=== PATIENT | female | born 1935 | race Caucasian/White ===

== ENCOUNTER → 2018-01-14 13:16 | Outpatient (CLI) | payer MEDICARE, OTHER, SELFPAY ==
--- NOTE | 2018-01-14 | OV.WND_ITS ---
Progress Note Details Patient Name: Lizeth Oconnell Patient Number: [id number] PatientPatientDate: 01/14/2018 Clinician: Brenda Whiteside Physician / Paving Contractor: Ryan Genao SUBJECTIVE Chief Complaint This information was obtained from the patient Non-healing wound to left lower leg Allergies NKDA HPI This information was obtained from the patient 01/14/18. Seen by Dr. Genao. The patient's new to our clinic and presents with a non-healing left lower leg trauma wound that occurred about 2 weeks ago when she fell over a step at her house. She reports pain, drainage, and periwound redness and was placed on antibiotics initially for 7 days and has now been off of them for one week. She does not report fevers or feeling unwell otherwise and does not have a history of diabetes or PAD. Family History This information was obtained from the patient Hypertension - Sibling, Mental Illness - Sibling, Stroke - Mother, Father Social History This information was obtained from the patient Former smoker - 1974, Alcohol Use - wine/ beer 1-2/ day, Caffeine Use - two cups , Children - 4, Lives in, Occupation - Owns [employer] Past Medical History This information was obtained from the patient Patient has a medical history of: Rupture of Right Rotator cuff Hypertension Diffuse cystic mastopathy of Breast Surgical History This information was obtained from the patient Patient has a surgical history of: Carpal Tunnel Release Bilat Cataract Removal Tubal Ligation Bilateral Patellar Repair R shoulder replacement Bunionectomy Complaints and Symptoms This information was obtained from the patient Patient complains of: General Notes: I have reviewed and concur with the Review of Systems and Past Family Social History documents completed by the clinician, I have reviewed and concur with the Wound Assessment document completed by the clinician Cardiovascular (Central/Peripheral): Lower extremity (leg) swelling Integumentary (Hair/Skin/Nails): Hemosiderin Staining, Open Sore Prior Wound History: Bleeding, Drainage, Erythema, Pain Patient denies complaints or symptoms related to: Cardiovascular (Central): Irregular heart beat Cardiovascular (Central/Peripheral): Intermittent Claudication, Lower extremity (leg) resting pain Constitutional Symptoms (General Health): Chills, Fever Ear/Nose/Mouth/Throat: Hearing Loss / Aid Hematologic/Lymphatic: Bleeding / Clotting Disorders, Bleeding Tendency Musculoskeletal: Assistive Devices, Muscle Weakness Neurological: Loss of Protective Sensation Psychiatric: Memory Loss Respiratory: Oxygen Use, Shortness of Breath General Notes: Up to date Medications lisinopril 10 mg tablet oral tablet oral once daily Aspirin Low Dose 81 mg tablet,delayed release oral tablet,delayed release (DR/EC ) oral once daily doxycycline hyclate 100 mg capsule oral capsule oral twice daily for 7 days for cellulitis OBJECTIVE Constitutional BP normal; Low grade fever; Alert and in no distress. Well developed. Alert. Clean appearing.. Height/Length: 61 in (154.94 cm), Weight: 121.7 lbs (55.32 kgs), BMI: 23, Temperature: 99.3 ?F (37.39 ?C), Pulse: 77 bpm, Respiratory Rate: 16 breaths/min, Blood Pressure: 122/76 mmHg, Pulse Oximetry: 94 %. Ears, Nose, Mouth, and Throat: No clinically significant hearing loss on informal examination. Respiratory: No respiratory distress. Even respirations and without use of accessory muscles.. Cardiovascular: Pedal pulses 2+ on affected limb. 1+ left lower extremity edema. Integumentary (Hair, Skin) Mild periwound erythema with warmth. Refer to appropriate clinician wound documentation for this visit; left lower leg wound extends to subcut with base partially covered with pink granulation, remainder fibrin and slough; base appears dry. Wound #1 Left Leg - lower is an acute Full Thickness Trauma Wound and has received a status of Not Healed. Initial wound encounter measurements are 3.3cm length x 4.5cm width x 0.5cm depth, with an area of 14.85 sq cm and a volume of 7.425 cubic cm. No tunneling has been noted. No sinus tract has been noted. No undermining has been noted. There is a moderate amount of sero-sanguineous drainage noted which has no odor. The patient reports a wound pain of level 4/10. The wound margin is attached. Wound bed has Yes epithelialization, No eschar, Yes slough, Yes bright red, pink, firm granulation. The periwound skin texture is normal. The periwound skin moisture is normal. The periwound skin exhibited: Erythema, Hemosiderosis. The temperature of the periwound skin is WNL. Periwound skin presents with s/s of infection. Confirmation Description and Treatment Plan is: Signs and Symptoms Present. Local Pulse is Doppler. Neurological: Cranial nerves grossly intact with symmetric function normal by informal observation.. ASSESSMENT Active Problems ICD-10 (Encounter Diagnosis) S81.802D - Unspecified open wound, left lower leg, subsequent encounter (Encounter Diagnosis) L03.116 - Cellulitis of left lower limb PROCEDURES Wound #1 Wound #1 (Trauma Wound) is located on the left leg - lower. A skin/subcutaneous tissue level surgical debridement with a total area debrided of 14.85 sq cm was performed by Ryan Genao MD. Subcutaneous was removed along with devitalized tissue: slough. The following instrument(s) were used: curette. Pain control was achieved using 4% Lido. A time out was conducted prior to the start of the procedure. A minimal amount of bleeding was controlled with n/a. The procedure was tolerated well with a pain level of 0 throughout and a pain level of 0 following the procedure. Post Debridement Measurements: 3.3cm length x 4.5cm width x 0.6cm depth; with an area of 14.85 sq cm and a volume of 8.91 cubic cm; PLAN Wound Orders: Wound #1 Left Leg - lower Anesthetic Topical Xylocaine to wound bed. - In clinic only Cleanser Cleanse Wound: - Normal Saline in Clinic. May use distilled water at home. May Shower. - Please avoid getting tap water in wound or on dressing. Topical Treatments Antibiotic/Antimicrobial Ointment/Cream. - Hydrogel Dressings Primary dressing: - Bordered Foam Change Dressing: - On sunday Additional Orders: Follow-Up Appointments Return Appointment: - - Sunday Other information: If you develop fever, chills, increased pain, drainage, redness or swelling please call our office. If after hours, respond to the ER. Should you experience any significant changes in your wound(s) or have any questions regarding your home care instructions please contact the wound center @ [phone]. If after hours, contact your primary care physician or go to the hospital emergency room. Scribing Attestation I attest, as the nurse, that I scribed these orders for the physician. Laboratory: Bacteria identified in Wound by Culture General Notes: Please warp picker antibiotics and take as prescribed. We will call with any positive wound cultures requiring a change in antibiotics I've reviewed the clinician's documentation and agree with the evaluation and plan as written. In addition the patient's wound demonstrates evidence of non-viable devitalized tissue which will continue to benefit from sharp debridement to help promote granulation and expedite healing. Also, I've taken a wound culture and started treating cellulitis of the left lower leg empirically with doxycycline. Electronic Signature(s) Signed By: Date: Ryan Genao MD 01/15/2018 10:10:58 Ryan Genao MD 01/15/2018 10:10:58 Entered By: Ryan Genao on 01/15/2018 09:20:02
== END ==
PROVIDERS: Visit Provider Internal Medicine
DX: S81.802A Unspecified open wound, left lower leg, initial encounter (principal); L03.116 Cellulitis of left lower limb
CPT/HCPCS: 11042; 87070; 87075; 87077; 87107; 87205; 99213

== ENCOUNTER → 2018-01-18 08:43 | Outpatient (CLI) | payer MEDICARE, OTHER, SELFPAY ==
--- NOTE | 2018-01-18 | OV.WND_ITS ---
Progress Note Details Patient Name: Lizeth Oconnell Patient Number: [id number] PatientPatientDate: 01/18/2018 Clinician: Suzy Desai Clinician Cosigner: Bernadette Bhat Physician / Telegraph Inspector: Ryan Genao SUBJECTIVE Chief Complaint This information was obtained from the patient Non-healing wound to left lower leg Allergies NKDA HPI This information was obtained from the patient 01/18/18. Seen by Dr. Genao. The patient was started on doxycycline at her last visit for cellulitis associate with the left lower leg non-healing trauma wound and feels the leg redness and swelling have decreased. She still reports pain however and her wound culture grew Sarai parapsilosis. Of note, she hit the leg off of her stairs at home about 2 weeks ago. She does not report fevers, adverse side effects of the doxycycline, or feeling unwell otherwise. 01/14/18. Seen by Dr. Genao. The patient's new to our clinic and presents with a non-healing left lower leg trauma wound that occurred about 2 weeks ago when she fell over a step at her house. She reports pain, drainage, and periwound redness and was placed on antibiotics initially for 7 days and has now been off of them for one week. She does not report fevers or feeling unwell otherwise and does not have a history of diabetes or PAD. Past Medical History This information was obtained from the patient Patient has a medical history of: Rupture of Right Rotator cuff Hypertension Diffuse cystic mastopathy of Breast Complaints and Symptoms This information was obtained from the patient Patient complains of: General Notes: I have reviewed and concur with the Review of Systems and Past Family Social History documents completed by the clinician, I have reviewed and concur with the Wound Assessment document completed by the clinician Cardiovascular (Central/Peripheral): Lower extremity (leg) swelling Integumentary (Hair/Skin/Nails): Hemosiderin Staining, Open Sore Prior Wound History: Bleeding, Drainage, Erythema, Pain Patient denies complaints or symptoms related to: Cardiovascular (Central): Irregular heart beat Cardiovascular (Central/Peripheral): Intermittent Claudication, Lower extremity (leg) resting pain Constitutional Symptoms (General Health): Chills, Fever Ear/Nose/Mouth/Throat: Hearing Loss / Aid Hematologic/Lymphatic: Bleeding / Clotting Disorders, Bleeding Tendency Musculoskeletal: Assistive Devices, Muscle Weakness Neurological: Loss of Protective Sensation Psychiatric: Memory Loss Respiratory: Oxygen Use, Shortness of Breath OBJECTIVE Constitutional Vital signs reviewed and noted. Well developed. Alert. Clean appearing.. Height/ Length: 61 in (154.94 cm), Weight: 120.6 lbs (54.82 kgs), BMI: 22.8, Temperature: 98.7 ?F ( 37.06 ?C), Pulse: 93 bpm, Respiratory Rate: 18 breaths/min, Blood Pressure: 123/84 mmHg, Pulse Oximetry: 100 %. Ears, Nose, Mouth, and Throat: No clinically significant hearing loss on informal examination. Respiratory: No respiratory distress. Even respirations and without use of accessory muscles.. Cardiovascular: Pedal pulses 2+ on affected limb. Affected extremity exhibits no peripheral edema or cyanosis, is warm, and is well perfused. Capillary refill is less than 2 seconds. Integumentary (Hair, Skin) Mild periwound erythema with warmth; improved from last visit. Refer to appropriate clinician wound documentation for this visit; left lower leg wound extends to subcut with base partially covered with pink granulation, remainder fibrin and slough. Wound #1 Left Leg - lower is an acute Full Thickness Trauma Wound and has received a status of Not Healed. Subsequent wound encounter measurements are 3.4cm length x 3cm width x 0.3cm depth, with an area of 10.2 sq cm and a volume of 3.06 cubic cm. No tunneling has been noted. No sinus tract has been noted. No undermining has been noted. There is a large amount of sero-sanguineous drainage noted which has no odor. The patient reports a wound pain of level 4/10. The wound margin is attached. Wound bed has Yes epithelialization, No eschar, Yes slough, Yes bright red, pink, firm granulation. The periwound skin texture is normal. The periwound skin moisture is normal. The periwound skin exhibited: Erythema, Hemosiderosis. The temperature of the periwound skin is WNL. Periwound skin presents with s/s of infection. Confirmation Description and Treatment Plan is: Signs and Symptoms Present. Local Pulse is Doppler. Neurological: Cranial nerves grossly intact with symmetric function normal by informal observation.. ASSESSMENT Active Problems ICD-10 (Encounter Diagnosis) S81.802D - Unspecified open wound, left lower leg, subsequent encounter (Encounter Diagnosis) L03.116 - Cellulitis of left lower limb (Encounter Diagnosis) L08.9 - Local infection of the skin and subcutaneous tissue, unspecified PROCEDURES Wound #1 Wound #1 (Trauma Wound) is located on the left leg - lower. A skin/subcutaneous tissue level surgical debridement with a total area debrided of 10.2 sq cm was performed by Ryan Genao MD. Subcutaneous was removed along with devitalized tissue: exudate and slough. The following instrument(s) were used: curette. Pain control was achieved using 4% Lido. A time out was conducted prior to the start of the procedure. A minimal amount of bleeding was controlled with pressure. The procedure was tolerated well with a pain level of 1 throughout and a pain level of 2 following the procedure. Post Debridement Measurements: 3.4cm length x 3cm width x 0.4cm depth; with an area of 10.2 sq cm and a volume of 4.08 cubic cm; PLAN Wound Orders: Wound #1 Left Leg - lower Anesthetic Topical Xylocaine to wound bed. - In clinic only Cleanser Cleanse Wound: - Normal Saline in Clinic. May use distilled water at home. May Shower. - Please avoid getting tap water in wound or on dressing. Topical Treatments Antibiotic/Antimicrobial Ointment/Cream. - Triple antibiotic to wound base with each dressing change. Dressings Primary dressing: - Bordered Foam Change Dressing: - Every day. Additional Orders: Follow-Up Appointments Return Appointment: - - January 29 when you return from your trip Other information: If you develop fever, chills, increased pain, drainage, redness or swelling please call our office. If after hours, respond to the ER. Should you experience any significant changes in your wound(s) or have any questions regarding your home care instructions please contact the wound center @ [phone]. If after hours, contact your primary care physician or go to the hospital emergency room. Scribing Attestation I attest, as the nurse, that I scribed these orders for the physician. I've reviewed the clinician's documentation and agree with the evaluation and plan as written. In addition, the patient's ulcer demonstrates evidence of non-viable devitalized tissue which will continue to benefit from sharp debridement to help promote granulation and expedite healing. Also, due to the persistent pain associated with the left leg wound I've started her on a short course of fluconazole to treat the Sarai positive ulcer. She'll also complete her course of doxycycline as prescribed. Electronic Signature(s) Signed By: Date: Ryan Genao MD 01/20/2018 14:27:05 Entered By: Ryan Genao on 01/18/2018 12:47:10
== END ==
PROVIDERS: Visit Provider Internal Medicine
DX: S81.802A Unspecified open wound, left lower leg, initial encounter (principal); L03.116 Cellulitis of left lower limb
CPT/HCPCS: 11042

== ENCOUNTER → 2018-01-28 13:13 | Outpatient (CLI) | payer MEDICARE, OTHER, SELFPAY ==
--- NOTE | 2018-01-28 | OV.WND_ITS ---
Progress Note Details Patient Name: Lizeth Oconnell Patient Number: [id number] PatientPatientDate: 01/28/2018 Clinician: Brenda Whiteside Physician / Institutional Commodity Analyst: Jose Koehler SUBJECTIVE Chief Complaint This information was obtained from the patient Non-healing wound to left lower leg Allergies NKDA HPI This information was obtained from the patient 01/28/18. Seen by Carlitos Koehler PA-C. The patient reports no increase in drainage from her left lower leg ulcer since her last evaluation. She has questions today about when and under what circumstances she can return to active swimming. 01/18/18. Seen by Dr. Genao. The patient was started on doxycycline at her last visit for cellulitis associate with the left lower leg non-healing trauma wound and feels the leg redness and swelling have decreased. She still reports pain however and her wound culture grew Sarai parapsilosis. Of note, she hit the leg off of her stairs at home about 2 weeks ago. She does not report fevers, adverse side effects of the doxycycline, or feeling unwell otherwise. 01/14/18. Seen by Dr. Genao. The patient's new to our clinic and presents with a non-healing left lower leg trauma wound that occurred about 2 weeks ago when she fell over a step at her house. She reports pain, drainage, and periwound redness and was placed on antibiotics initially for 7 days and has now been off of them for one week. She does not report fevers or feeling unwell otherwise and does not have a history of diabetes or PAD. Family History This information was obtained from the patient Hypertension - Sibling, Mental Illness - Sibling, Stroke - Mother, Father Social History This information was obtained from the patient Former smoker - 1974, Alcohol Use - wine/ beer 1-2/ day, Caffeine Use - two cups , Children - 4, Lives in, Occupation - Owns [employer] Past Medical History This information was obtained from the patient Patient has a medical history of: Rupture of Right Rotator cuff Hypertension Diffuse cystic mastopathy of Breast Complaints and Symptoms This information was obtained from the patient Patient complains of: General Notes: I have reviewed and concur with the Review of Systems and Past Family Social History documents completed by the clinician, I have reviewed and concur with the Wound Assessment document completed by the clinician Cardiovascular (Central/Peripheral): Lower extremity (leg) swelling Integumentary (Hair/Skin/Nails): Hemosiderin Staining, Open Sore Prior Wound History: Bleeding, Drainage, Erythema, Pain Patient denies complaints or symptoms related to: Cardiovascular (Central): Irregular heart beat Cardiovascular (Central/Peripheral): Intermittent Claudication, Lower extremity (leg) resting pain Constitutional Symptoms (General Health): Chills, Fever Ear/Nose/Mouth/Throat: Hearing Loss / Aid Hematologic/Lymphatic: Bleeding / Clotting Disorders, Bleeding Tendency Musculoskeletal: Assistive Devices, Muscle Weakness Neurological: Loss of Protective Sensation Psychiatric: Memory Loss Respiratory: Oxygen Use, Shortness of Breath OBJECTIVE Constitutional Vital signs reviewed and noted. Well developed, lucid, and in no acute distress. . Height/Length: 61 in (154.94 cm), Weight: 122.8 lbs (55.82 kgs), BMI: 23.2, Temperature: 98.2 ?F (36.78 ?C), Pulse: 68 bpm, Respiratory Rate: 18 breaths/min, Blood Pressure: 129/87 mmHg, Pulse Oximetry: 97 %. Ears, Nose, Mouth, and Throat: Grossly intact. Respiratory: No respiratory distress. Even respirations and without use of accessory muscles.. Cardiovascular: 2+ bilateral lower leg edema with hemosiderin staining. Integumentary (Hair, Skin) Refer to appropriate clinician wound documentation for this visit; ulcer extends to subcutaneous fat layer. . Wound #1 Left Leg - lower is an acute Full Thickness Trauma Wound and has received a status of Not Healed. Subsequent wound encounter measurements are 3cm length x 3.7cm width x 0.3cm depth, with an area of 11.1 sq cm and a volume of 3.33 cubic cm. No tunneling has been noted. No sinus tract has been noted. No undermining has been noted. There is a moderate amount of sero-sanguineous drainage noted which has no odor. The patient reports a wound pain of level 4/10. The wound margin is attached. Wound bed has Yes epithelialization, No eschar, Yes slough, Yes bright red, pink, firm granulation. The periwound skin texture is normal. The periwound skin moisture is normal. The periwound skin exhibited: Erythema, Hemosiderosis. The temperature of the periwound skin is WNL. Periwound skin does not exhibit signs or symptoms of infection. Local Pulse is Doppler. Psychiatric: Judgement and insight: Normal affect with normal thought pattern. Alert and oriented 3/3. Memory grossly intact.. Normal affect. Mood appropriate.. 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 A skin/subcutaneous tissue level surgical debridement with a total area debrided of 11.1 sq cm was performed by York, Jose, PA. Subcutaneous was removed along with devitalized tissue: slough. The following instrument(s) were used: curette. Pain control was achieved using 4% Lido. A time out was conducted prior to the start of the procedure. A minimal amount of bleeding was controlled with n/a. The procedure was tolerated well with a pain level of 2 throughout and a pain level of 0 following the procedure. Post Debridement Measurements: 3cm length x 3.7cm width x 0.4cm depth; with an area of 11.1 sq cm and a volume of 4.44 cubic cm; Additional Information Muscle fascia or bone removed and sent to pathology?: No PLAN Wound Orders: Wound #1 Left Leg - lower Anesthetic Topical Xylocaine to wound bed. - In clinic only Cleanser Cleanse Wound: - Normal Saline in Clinic. May use distilled water at home. May Shower. - Please avoid getting tap water in wound or on dressing. Topical Treatments Antibiotic/Antimicrobial Ointment/Cream. - Triple antibiotic to wound base with each dressing change. Dressings Primary dressing: - Bordered Foam Change Dressing: - Every day. Additional Orders: Follow-Up Appointments Return Appointment: - - One week Other information: If you develop fever, chills, increased pain, drainage, redness or swelling please call our office. If after hours, respond to the ER. Should you experience any significant changes in your wound(s) or have any questions regarding your home care instructions please contact the wound center @ [phone]. If after hours, contact your primary care physician or go to the hospital emergency room. Scribing Attestation I attest, as the nurse, that I scribed these orders for the physician. I've reviewed the clinician's documentation and agree with the evaluation and plan as written. Greater than 25 minutes were spent [id number] with the patient during this encounter and over 50% of that time was spent on education, counseling and coordination of care. We discussed the importance of keeping water out of the ulcer and ways to swim without water contaminating the ulcer. In addition the patient's ulcer demonstrates evidence of non-viable devitalized tissue which benefits from sharp debridement. Electronic Signature(s) Signed By: Date: Carlitos Koehler 01/28/2018 22:45:03 Entered By: Carlitos Koehler on 01/28/2018 22:44:06
== END ==
PROVIDERS: Visit Provider Physician Assistant
DX: S81.802A Unspecified open wound, left lower leg, initial encounter (principal)
CPT/HCPCS: 11042

== ENCOUNTER → 2018-02-11 14:28 | Outpatient (REF) | payer MEDICARE, OTHER, SELFPAY | LOC: LAB 14:28 | PROVIDERS: Visit Provider Internal Medicine | DX: L08.89 Other specified local infections of the skin and subcutaneous tissue (principal) | CPT/HCPCS: 11042; 87070; 87077; 87186; 87205 ==

== ENCOUNTER → 2018-02-20 09:24 | Outpatient (CLI) | payer MEDICARE, OTHER, SELFPAY ==
--- NOTE | 2018-02-20 | OV.WND_ITS ---
Progress Note Details Patient Name: Lizeth Oconnell Patient Number: [id number] PatientPatientDate: 02/20/2018 Clinician: Tracey Lemons Clinician Cosigner: Suzy Desai Physician / Polysomnographic Technologist: Ryan Genao SUBJECTIVE Chief Complaint This information was obtained from the patient Non-healing wound to left lower leg Allergies NKDA HPI This information was obtained from the patient 02/20/18. Seen by Dr. Genao. The patient completed her course of levofloxacin today that's treating the recent pseudomonas positive wound culture taken from the chronic left lower leg non-pressure ulcer. She does not report increased drainage or pain from the site nor side effects from the antibiotics. 02/11/18. Seen by Dr. Genao. The patient reports some discomfort and continued drainage associated with the chronic left lower leg non-pressure ulcer since her last visit however she does not report fevers or feeling unwell in general. She also reports significant pruritus in the periucler area. 01/28/18. Seen by Carlitos Koehler PA-C. The patient reports no increase in drainage from her left lower leg ulcer since her last evaluation. She has questions today about when and under what circumstances she can return to active swimming. 01/18/18. Seen by Dr. Genao. The patient was started on doxycycline at her last visit for cellulitis associate with the left lower leg non-healing trauma wound and feels the leg redness and swelling have decreased. She still reports pain however and her wound culture grew Sarai parapsilosis. Of note, she hit the leg off of her stairs at home about 2 weeks ago. She does not report fevers, adverse side effects of the doxycycline, or feeling unwell otherwise. 01/14/18. Seen by Dr. Genao. The patient's new to our clinic and presents with a non-healing left lower leg trauma wound that occurred about 2 weeks ago when she fell over a step at her house. She reports pain, drainage, and periwound redness and was placed on antibiotics initially for 7 days and has now been off of them for one week. She does not report fevers or feeling unwell otherwise and does not have a history of diabetes or PAD. Past Medical History This information was obtained from the patient Patient has a medical history of: Rupture of Right Rotator cuff Hypertension Diffuse cystic mastopathy of Breast Complaints and Symptoms This information was obtained from the patient Patient complains of: General Notes: I have reviewed and concur with the Review of Systems and Past Family Social History documents completed by the clinician, I have reviewed and concur with the Wound Assessment document completed by the clinician Cardiovascular (Central/Peripheral): Lower extremity (leg) swelling Integumentary (Hair/Skin/Nails): Hemosiderin Staining, Open Sore Prior Wound History: Bleeding, Drainage, Erythema, Pain Patient denies complaints or symptoms related to: Cardiovascular (Central): Irregular heart beat Cardiovascular (Central/Peripheral): Intermittent Claudication, Lower extremity (leg) resting pain Constitutional Symptoms (General Health): Chills, Fever Ear/Nose/Mouth/Throat: Hearing Loss / Aid Hematologic/Lymphatic: Bleeding / Clotting Disorders, Bleeding Tendency Musculoskeletal: Assistive Devices, Muscle Weakness Neurological: Loss of Protective Sensation Psychiatric: Memory Loss Respiratory: Oxygen Use, Shortness of Breath OBJECTIVE Constitutional BP elevated; Afebrile; Alert and in no distress. Well developed. Alert. Clean appearing.. Height/Length: 61 in (154.94 cm), Weight: 122.8 lbs (55.82 kgs), BMI: 23.2, Temperature: 97.4 ?F (36.33 ?C), Pulse: 80 bpm, Respiratory Rate: 16 breaths/min, Blood Pressure: 145/84 mmHg, Pulse Oximetry: 99 %. Ears, Nose, Mouth, and Throat: No clinically significant hearing loss on informal examination. Respiratory: No respiratory distress. Even respirations and without use of accessory muscles.. Cardiovascular: Affected extremity exhibits no peripheral edema or cyanosis, is warm, and is well perfused. Capillary refill is less than 2 seconds. Integumentary (Hair, Skin) Hemosiderin staining noted over left lower leg. Refer to appropriate clinician wound documentation for this visit; left lower leg wound extends to subcut with base partially covered with pink granulation, remainder fibrin and slough. Wound #1 Left Leg - lower is an acute Full Thickness Trauma Wound and has received a status of Not Healed. Subsequent wound encounter measurements are 2.9cm length x 2.2cm width x 0.1cm depth, with an area of 6.38 sq cm and a volume of 0.638 cubic cm. Hypergranulation was noted. No tunneling has been noted. No sinus tract has been noted. No undermining has been noted. There is a moderate amount of sero-sanguineous drainage noted which has no odor. The patient reports a wound pain of level 4/10. The wound margin is attached. Wound bed has Yes epithelialization, No eschar, Yes slough, Yes bright red, pink, firm granulation. The periwound skin exhibited: Edema, Moist, Hemosiderosis. The periwound skin did not exhibit: Brawny Induration, Excoriation, Induration, Callus, Crepitus, Fluctuance, Friable, Rash, Maceration, Erythema. The temperature of the periwound skin is WNL. Periwound skin does not exhibit signs or symptoms of infection. Local Pulse is Doppler. Neurological: Cranial nerves grossly intact with symmetric function normal by informal observation.. ASSESSMENT Active Problems ICD-10 (Encounter Diagnosis) L97.822 - Non-pressure chronic ulcer of other part of left lower leg with fat layer exposed (Encounter Diagnosis) I87.312 - Chronic venous hypertension (idiopathic) with ulcer of left lower extremity (Encounter Diagnosis) B96.5 - Pseudomonas (aeruginosa) (mallei) (pseudomallei) as the cause of diseases classified elsewhere PROCEDURES Wound #1 Wound #1 (Trauma Wound) is located on the left leg - lower. A skin/subcutaneous tissue level surgical debridement with a total area debrided of 7.25 sq cm was performed by Ryan Genao MD. Subcutaneous was removed along with devitalized tissue: exudate and slough. The following instrument(s) were used: curette. Pain control was achieved using 4% Lido. A time out was conducted prior to the start of the procedure. A minimal amount of bleeding was controlled with pressure. The procedure was tolerated well with a pain level of 0 throughout and a pain level of 0 following the procedure. Post Debridement Measurements: 2.9cm length x 2.5cm width x 0.2cm depth; with an area of 7.25 sq cm and a volume of 1.45 cubic cm; Additional Information Muscle fascia or bone removed and sent to pathology?: No PLAN Wound Orders: Wound #1 Left Leg - lower Anesthetic Topical Xylocaine to wound bed. - In clinic only. Cleanser Cleanse Wound: - Normal Saline in Clinic. May use distilled water at home. May Shower. - Please avoid getting tap water in wound or on dressing. Topical Treatments Antibiotic/Antimicrobial Ointment/Cream. - Gentamicin ointment to wound base. Dressings Cover and secure with: - Tielle Plus bordered foam. Change Dressing: - Every other day. Additional Orders: Compression/Edema Control Single Layer Compression Hose - Tetragrip E. On in the morning, off at night. Follow-Up Appointments Return Appointment: - - One week. Other information: If you develop fever, chills, increased pain, drainage, redness or swelling please call our office. If after hours, respond to the ER. Should you experience any significant changes in your wound(s) or have any questions regarding your home care instructions please contact the wound center @ [phone]. If after hours, contact your primary care physician or go to the hospital emergency room. Scribing Attestation I attest, as the nurse, that I scribed these orders for the physician. General Notes: Will order supplies at next visit I've reviewed the clinician's documentation and agree with the evaluation and plan as written. In addition the patient's wound demonstrates evidence of non-viable devitalized tissue which will continue to benefit from sharp debridement to help promote granulation and expedite healing. Also, I'll defer additional oral antibiotics and begin treating with topical gentamicin ointment. Electronic Signature(s) Signed By: Date: Ryan Genao MD 02/21/2018 07:19:13 Entered By: Ryan Genao on 02/20/2018 13:36:13
== END ==
PROVIDERS: Visit Provider Internal Medicine
DX: I87.312 Chronic venous hypertension (idiopathic) with ulcer of left lower extremity (principal); L97.822 Non-pressure chronic ulcer of other part of left lower leg with fat layer exposed; B96.5 Pseudomonas (aeruginosa) (mallei) (pseudomallei) as the cause of diseases classified elsewhere
CPT/HCPCS: 11042

== ENCOUNTER → 2018-03-04 09:14 | Outpatient (CLI) | payer MEDICARE, OTHER, SELFPAY ==
--- NOTE | 2018-03-04 | OV.WND_ITS ---
Progress Note Details Patient Name: Lizeth Oconnell Patient Number: [id number] PatientPatientDate: 03/04/2018 Clinician: Alma Meléndez Clinician Cosigner: Tracey Lemons Physician / Conference And Event Organiser: Ryan Genao SUBJECTIVE Chief Complaint This information was obtained from the patient Non-healing wound to left lower leg Allergies NKDA HPI This information was obtained from the patient 03/04/18. Seen by Dr. Genao. The patient does not report pain associated with the left lower leg non-pressure ulcer since completing her recent course of levofloxacin. 02/20/18. Seen by Dr. Genao. The patient completed her course of levofloxacin today that's treating the recent pseudomonas positive wound culture taken from the chronic left lower leg non-pressure ulcer. She does not report increased drainage or pain from the site nor side effects from the antibiotics. 02/11/18. Seen by Dr. Genao. The patient reports some discomfort and continued drainage associated with the chronic left lower leg non-pressure ulcer since her last visit however she does not report fevers or feeling unwell in general. She also reports significant pruritus in the periucler area. 01/28/18. Seen by Carlitos Koehler PA-C. The patient reports no increase in drainage from her left lower leg ulcer since her last evaluation. She has questions today about when and under what circumstances she can return to active swimming. 01/18/18. Seen by Dr. Genao. The patient was started on doxycycline at her last visit for cellulitis associate with the left lower leg non-healing trauma wound and feels the leg redness and swelling have decreased. She still reports pain however and her wound culture grew Sarai parapsilosis. Of note, she hit the leg off of her stairs at home about 2 weeks ago. She does not report fevers, adverse side effects of the doxycycline, or feeling unwell otherwise. 01/14/18. Seen by Dr. Genao. The patient's new to our clinic and presents with a non-healing left lower leg trauma wound that occurred about 2 weeks ago when she fell over a step at her house. She reports pain, drainage, and periwound redness and was placed on antibiotics initially for 7 days and has now been off of them for one week. She does not report fevers or feeling unwell otherwise and does not have a history of diabetes or PAD. Past Medical History This information was obtained from the patient Patient has a medical history of: Rupture of Right Rotator cuff Hypertension Diffuse cystic mastopathy of Breast Complaints and Symptoms This information was obtained from the patient Patient complains of: General Notes: I have reviewed and concur with the Review of Systems and Past Family Social History documents completed by the clinician, I have reviewed and concur with the Wound Assessment document completed by the clinician Cardiovascular (Central/Peripheral): Lower extremity (leg) swelling Integumentary (Hair/Skin/Nails): Hemosiderin Staining, Open Sore Prior Wound History: Bleeding, Drainage, Erythema, Pain Patient denies complaints or symptoms related to: Cardiovascular (Central): Irregular heart beat Cardiovascular (Central/Peripheral): Intermittent Claudication, Lower extremity (leg) resting pain Constitutional Symptoms (General Health): Chills, Fever Ear/Nose/Mouth/Throat: Hearing Loss / Aid Hematologic/Lymphatic: Bleeding / Clotting Disorders, Bleeding Tendency Musculoskeletal: Assistive Devices, Muscle Weakness Neurological: Loss of Protective Sensation Psychiatric: Memory Loss Respiratory: Oxygen Use, Shortness of Breath OBJECTIVE Constitutional BP elevated; Afebrile; Alert and in no distress. Well developed. Alert. Clean appearing.. Height/Length: 61 in (154.94 cm), Weight: 122.8 lbs (55.82 kgs), BMI: 23.2, Temperature: 98.8 ?F (37.11 ?C), Pulse: 81 bpm, Respiratory Rate: 15 breaths/min, Blood Pressure: 150/89 mmHg, Pulse Oximetry: 97 %. Ears, Nose, Mouth, and Throat: No clinically significant hearing loss on informal examination. Integumentary (Hair, Skin) No periwound erythema, warmth, or significant drainage. No periwound rashes appreciated or noted otherwise.. Refer to appropriate clinician wound documentation for this visit; left lower leg ulcer extends to subcut with base partially covered with red, friable hypergranulation, remainder fibrin and slough. Wound #1 Left Leg - lower is an acute Full Thickness Trauma Wound and has received a status of Not Healed. Subsequent wound encounter measurements are 2cm length x 1cm width x 0.1cm depth, with an area of 2 sq cm and a volume of 0.2 cubic cm. Hypergranulation was noted. No tunneling has been noted. No sinus tract has been noted. No undermining has been noted. There is a moderate amount of sero-sanguineous drainage noted which has no odor. The patient reports a wound pain of level 1/10. The wound margin is attached. Wound bed has Yes epithelialization, No eschar, Yes slough, Yes bright red, pink, firm granulation. The periwound skin exhibited: Edema, Moist, Hemosiderosis. The periwound skin did not exhibit: Brawny Induration, Excoriation, Induration, Callus, Crepitus, Fluctuance, Friable, Rash, Maceration, Erythema. The temperature of the periwound skin is WNL. Periwound skin does not exhibit signs or symptoms of infection. Local Pulse is Doppler. Neurological: Cranial nerves grossly intact with symmetric function normal by informal observation.. ASSESSMENT Active Problems ICD-10 (Encounter Diagnosis) L97.822 - Non-pressure chronic ulcer of other part of left lower leg with fat layer exposed PROCEDURES Wound #1 Wound #1 (Trauma Wound) is located on the left leg - lower. A Chemical Cauterization procedure was performed by Ryan Genao MD. General Notes: Use silver nitrate for hypergranulation. PLAN Wound Orders: Wound #1 Left Leg - lower Anesthetic Topical Xylocaine to wound bed. - In clinic only. Cleanser Cleanse Wound: - Normal Saline in Clinic. May use distilled water at home. May Shower. - Please avoid getting tap water in wound or on dressing. Dressings Cover and secure with: - Tielle Plus bordered foam. Change Dressing: - Every other day. Additional Orders: Compression/Edema Control Single Layer Compression Hose - Tetragrip E. On in the morning, off at night. Follow-Up Appointments Return Appointment: - - One week. Other information: If you develop fever, chills, increased pain, drainage, redness or swelling please call our office. If after hours, respond to the ER. Should you experience any significant changes in your wound(s) or have any questions regarding your home care instructions please contact the wound center @ [phone]. If after hours, contact your primary care physician or go to the hospital emergency room. Scribing Attestation I attest, as the nurse, that I scribed these orders for the physician. In addition the presence of hypergranulation tissue in the wound was not an expected finding and was cauterized with silver nitrate. The patient's dressing regimen will be modified appropriately to attempt to reduce the formation of further hypergranulation tissue. Electronic Signature(s) Signed By: Date: Ryan Genao MD 03/05/2018 07:58:14 Entered By: Ryan Genao on 03/05/2018 07:53:13
== END ==
PROVIDERS: PCP Family Medicine; Visit Provider Internal Medicine
DX: L97.822 Non-pressure chronic ulcer of other part of left lower leg with fat layer exposed (principal); L92.9 Granulomatous disorder of the skin and subcutaneous tissue, unspecified
CPT/HCPCS: 17250

== ENCOUNTER → 2018-03-11 09:32 | Outpatient (CLI) | payer MEDICARE, OTHER, SELFPAY ==
--- NOTE | 2018-03-11 | OV.WND_ITS ---
Progress Note Details Patient Name: Lizeth Oconnell Patient Number: [id number] PatientPatientDate: 03/11/2018 Clinician: Alma Meléndez Clinician Cosigner: Bernadette Bhat Physician / Collaborative Teacher: Ryan Genao SUBJECTIVE Chief Complaint This information was obtained from the patient Non-healing wound to left lower leg Allergies NKDA HPI This information was obtained from the patient 03/11/18. Seen by Dr. Genao. The patient does not report pain associated with the left lower leg non-pressure ulcer since her last visit. 03/04/18. Seen by Dr. Genao. The patient does not report pain associated with the left lower leg non-pressure ulcer since completing her recent course of levofloxacin. 02/20/18. Seen by Dr. Genao. The patient completed her course of levofloxacin today that's treating the recent pseudomonas positive wound culture taken from the chronic left lower leg non-pressure ulcer. She does not report increased drainage or pain from the site nor side effects from the antibiotics. 02/11/18. Seen by Dr. Genao. The patient reports some discomfort and continued drainage associated with the chronic left lower leg non-pressure ulcer since her last visit however she does not report fevers or feeling unwell in general. She also reports significant pruritus in the periucler area. 01/28/18. Seen by Carlitos Koehler PA-C. The patient reports no increase in drainage from her left lower leg ulcer since her last evaluation. She has questions today about when and under what circumstances she can return to active swimming. 01/18/18. Seen by Dr. Genao. The patient was started on doxycycline at her last visit for cellulitis associate with the left lower leg non-healing trauma wound and feels the leg redness and swelling have decreased. She still reports pain however and her wound culture grew Sarai parapsilosis. Of note, she hit the leg off of her stairs at home about 2 weeks ago. She does not report fevers, adverse side effects of the doxycycline, or feeling unwell otherwise. 01/14/18. Seen by Dr. Genao. The patient's new to our clinic and presents with a non-healing left lower leg trauma wound that occurred about 2 weeks ago when she fell over a step at her house. She reports pain, drainage, and periwound redness and was placed on antibiotics initially for 7 days and has now been off of them for one week. She does not report fevers or feeling unwell otherwise and does not have a history of diabetes or PAD. Past Medical History This information was obtained from the patient Patient has a medical history of: Rupture of Right Rotator cuff Hypertension Diffuse cystic mastopathy of Breast Complaints and Symptoms This information was obtained from the patient Patient complains of: General Notes: I have reviewed and concur with the Review of Systems and Past Family Social History documents completed by the clinician, I have reviewed and concur with the Wound Assessment document completed by the clinician Cardiovascular (Central/Peripheral): Lower extremity (leg) swelling Integumentary (Hair/Skin/Nails): Hemosiderin Staining, Open Sore Prior Wound History: Bleeding, Drainage, Erythema, Pain Patient denies complaints or symptoms related to: Cardiovascular (Central): Irregular heart beat Cardiovascular (Central/Peripheral): Intermittent Claudication, Lower extremity (leg) resting pain Constitutional Symptoms (General Health): Chills, Fever Ear/Nose/Mouth/Throat: Hearing Loss / Aid Hematologic/Lymphatic: Bleeding / Clotting Disorders, Bleeding Tendency Musculoskeletal: Assistive Devices, Muscle Weakness Neurological: Loss of Protective Sensation Psychiatric: Memory Loss Respiratory: Oxygen Use, Shortness of Breath OBJECTIVE Constitutional BP elevated; Afebrile; Alert and in no distress. Well developed. Alert. Clean appearing.. Height/Length: 61 in (154.94 cm), Weight: 121.7 lbs (55.32 kgs), BMI: 23, Temperature: 98.2 ?F (36.78 ?C), Pulse: 70 bpm, Respiratory Rate: 16 breaths/min, Blood Pressure: 164/90 mmHg, Pulse Oximetry: 98 %. Respiratory: No respiratory distress. Even respirations and without use of accessory muscles.. Cardiovascular: Affected extremity exhibits no peripheral edema or cyanosis, is warm, and is well perfused. Capillary refill is less than 2 seconds. Integumentary (Hair, Skin) No periwound erythema, warmth, or significant drainage. No periwound rashes appreciated or noted otherwise.. Refer to appropriate clinician wound documentation for this visit; left lower leg wound extends to subcut with base covered with red hypergranulation, remainder fibrin and slough. Wound #1 Left Leg - lower is an acute Full Thickness Trauma Wound and has received a status of Not Healed. Subsequent wound encounter measurements are 2cm length x 1cm width x 0.1cm depth, with an area of 2 sq cm and a volume of 0.2 cubic cm. Hypergranulation was noted. No tunneling has been noted. No sinus tract has been noted. No undermining has been noted. There is a moderate amount of sero-sanguineous drainage noted which has no odor. The patient reports a wound pain of level 0/10. The wound margin is attached. Wound bed has Yes epithelialization, No eschar, Yes slough, Yes bright red, pink, firm granulation. The periwound skin moisture is normal. The periwound skin exhibited: Edema, Hemosiderosis. The periwound skin did not exhibit: Brawny Induration, Excoriation, Induration, Callus, Crepitus, Fluctuance, Friable, Rash, Erythema. The temperature of the periwound skin is WNL. Periwound skin does not exhibit signs or symptoms of infection. Local Pulse is Doppler. Neurological: Cranial nerves grossly intact with symmetric function normal by informal observation.. ASSESSMENT Active Problems ICD-10 (Encounter Diagnosis) L97.822 - Non-pressure chronic ulcer of other part of left lower leg with fat layer exposed PROCEDURES Wound #1 Wound #1 (Trauma Wound) is located on the left leg - lower. A Chemical Cauterization procedure was performed by Ryan Genao MD. General Notes: Use silver nitrate for hypergranulation. PLAN Wound Orders: Wound #1 Left Leg - lower Anesthetic Topical Xylocaine to wound bed. - In clinic only. Cleanser Cleanse Wound: - Normal Saline in Clinic. May use distilled water at home. May Shower. - Please avoid getting tap water in wound or on dressing. Dressings Cover and secure with: - bordered foam. Change Dressing: - Every other day. Additional Orders: Compression/Edema Control Single Layer Compression Hose - Tetragrip E. On in the morning, off at night. Follow-Up Appointments Return Appointment: - - Two weeks Other information: If you develop fever, chills, increased pain, drainage, redness or swelling please call our office. If after hours, respond to the ER. Should you experience any significant changes in your wound(s) or have any questions regarding your home care instructions please contact the wound center @ [phone]. If after hours, contact your primary care physician or go to the hospital emergency room. Scribing Attestation I attest, as the nurse, that I scribed these orders for the physician. In addition the presence of hypergranulation tissue in the wound was not an expected finding and was cauterized with silver nitrate. The patient's dressing regimen will be modified appropriately to attempt to reduce the formation of further hypergranulation tissue. Electronic Signature(s) Signed By: Date: Ryan Genao MD 03/12/2018 07:14:34 Entered By: Ryan Genao on 03/12/2018 07:10:04
== END ==
PROVIDERS: PCP Family Medicine; Visit Provider Internal Medicine
DX: L97.822 Non-pressure chronic ulcer of other part of left lower leg with fat layer exposed (principal); L92.9 Granulomatous disorder of the skin and subcutaneous tissue, unspecified
CPT/HCPCS: 17250

== ENCOUNTER → 2018-03-26 13:32 | Outpatient (CLI) | payer MEDICARE, OTHER, SELFPAY | PROVIDERS: PCP Family Medicine; Visit Provider Internal Medicine | DX: S81.802A Unspecified open wound, left lower leg, initial encounter (principal); L03.116 Cellulitis of left lower limb | CPT/HCPCS: 11042; 87070; 87075; 87077; 87186; 87205 ==

== ENCOUNTER → 2018-04-03 10:33 | Outpatient (CLI) | payer MEDICARE, OTHER, SELFPAY ==
--- NOTE | 2018-04-03 | OV.WND_ITS ---
Progress Note Details Patient Name: Lizeth Oconnell Patient Number: [id number] PatientPatientDate: 04/03/2018 Clinician: Alma Meléndez Clinician Cosigner: Suzy Desai Physician / Delivery Coordinator: Ryan Genao SUBJECTIVE Chief Complaint This information was obtained from the patient Non-healing wound to left lower leg Allergies NKDA HPI This information was obtained from the patient 04/03/18. Seen by Dr. Genao. The patient does not report pain associated with the left lower leg non-pressure ulcer since her last visit. She'll complete her course of antibiotics today that's treating the Pseudomonas and Klebsiella positive wound culture taken last week and she does not report adverse side effects, fevers, or feeling unwell. She's also asked is I'd consider removing sutures from a right lower leg surgical wound where she'd had a Moh's procedure performed 10 days ago in [place]. She does not report pain or drainage associated with this wound. 03/26/18. Seen by Dr. Genao. The patient reports hitting her left lower leg on her car door yesterday in an area adjacent to the chronic left lower leg non-pressure ulcer. She reports some pain at the site and increased drainage but does not report any new issues regarding the chronic ulcer. 03/11/18. Seen by Dr. Genao. The patient does not report pain associated with the left lower leg non-pressure ulcer since her last visit. 03/04/18. Seen by Dr. Genao. The patient does not report pain associated with the left lower leg non-pressure ulcer since completing her recent course of levofloxacin. 02/20/18. Seen by Dr. Genao. The patient completed her course of levofloxacin today that's treating the recent pseudomonas positive wound culture taken from the chronic left lower leg non-pressure ulcer. She does not report increased drainage or pain from the site nor side effects from the antibiotics. 02/11/18. Seen by Dr. Genao. The patient reports some discomfort and continued drainage associated with the chronic left lower leg non-pressure ulcer since her last visit however she does not report fevers or feeling unwell in general. She also reports significant pruritus in the periucler area. 01/28/18. Seen by Carlitos Koehler PA-C. The patient reports no increase in drainage from her left lower leg ulcer since her last evaluation. She has questions today about when and under what circumstances she can return to active swimming. 01/18/18. Seen by Dr. Genao. The patient was started on doxycycline at her last visit for cellulitis associate with the left lower leg non-healing trauma wound and feels the leg redness and swelling have decreased. She still reports pain however and her wound culture grew Sarai parapsilosis. Of note, she hit the leg off of her stairs at home about 2 weeks ago. She does not report fevers, adverse side effects of the doxycycline, or feeling unwell otherwise. 01/14/18. Seen by Dr. Genao. The patient's new to our clinic and presents with a non-healing left lower leg trauma wound that occurred about 2 weeks ago when she fell over a step at her house. She reports pain, drainage, and periwound redness and was placed on antibiotics initially for 7 days and has now been off of them for one week. She does not report fevers or feeling unwell otherwise and does not have a history of diabetes or PAD. Past Medical History This information was obtained from the patient Patient has a medical history of: Rupture of Right Rotator cuff Hypertension Diffuse cystic mastopathy of Breast Complaints and Symptoms This information was obtained from the patient Patient complains of: General Notes: I have reviewed and concur with the Review of Systems and Past Family Social History documents completed by the clinician, I have reviewed and concur with the Wound Assessment document completed by the clinician Cardiovascular (Central/Peripheral): Lower extremity (leg) swelling Integumentary (Hair/Skin/Nails): Hemosiderin Staining, Open Sore Prior Wound History: Bleeding, Drainage, Erythema, Pain Patient denies complaints or symptoms related to: Cardiovascular (Central): Irregular heart beat Cardiovascular (Central/Peripheral): Intermittent Claudication, Lower extremity (leg) resting pain Constitutional Symptoms (General Health): Chills, Fever Ear/Nose/Mouth/Throat: Hearing Loss / Aid Hematologic/Lymphatic: Bleeding / Clotting Disorders, Bleeding Tendency Musculoskeletal: Assistive Devices, Muscle Weakness Neurological: Loss of Protective Sensation Psychiatric: Memory Loss Respiratory: Oxygen Use, Shortness of Breath OBJECTIVE Constitutional BP elevated; Afebrile; Alert and in no distress. Well developed. Alert. Clean appearing.. Height/Length: 61 in (154.94 cm), Weight: 121.7 lbs (55.32 kgs), BMI: 23, Temperature: 97.7 ?F (36.5 ?C), Pulse: 75 bpm, Respiratory Rate: 17 breaths/min, Blood Pressure: 164/97 mmHg, Pulse Oximetry: 99 %. Ears, Nose, Mouth, and Throat: No clinically significant hearing loss on informal examination. Respiratory: No respiratory distress. Even respirations and without use of accessory muscles.. Cardiovascular: Affected extremity exhibits no peripheral edema or cyanosis, is warm, and is well perfused. Capillary refill is less than 2 seconds. Integumentary (Hair, Skin) Hyperkeratotic changes noted over the bilateral lower legs. Refer to appropriate clinician wound documentation for this visit. Right lower leg wound margins nearly entirely apposed an healed; sutures removed without difficulty. Wound #1 Left Leg - lower is an acute Full Thickness Trauma Wound and has received an outcome of Healed - no new wound(s). Subsequent wound encounter measurements are 0cm length x 0cm width x 0cm depth, with an area of 0 sq cm and a volume of 0 cubic cm. Hypergranulation was noted. No tunneling has been noted. No sinus tract has been noted. No undermining has been noted. There was no drainage noted. The patient reports a wound pain of level 0/10. The wound margin is attached. Wound bed has Yes epithelialization , No eschar, Yes slough, Yes bright red, pink, firm granulation. The periwound skin texture is normal. The periwound skin moisture is normal. The periwound skin exhibited: Hemosiderosis. The periwound skin did not exhibit: Erythema. The temperature of the periwound skin is WNL. Periwound skin does not exhibit signs or symptoms of infection. Local Pulse is Doppler. Neurological: Cranial nerves grossly intact with symmetric function normal by informal observation.. ASSESSMENT Active Problems ICD-10 (Encounter Diagnosis) S81.802D - Unspecified open wound, left lower leg, subsequent encounter (Encounter Diagnosis) L08.89 - Other specified local infections of the skin and subcutaneous tissue (Encounter Diagnosis) Z48.02 - Encounter for removal of sutures PLAN Wound Orders: Wound #1 Left Leg - lower Anesthetic Topical Xylocaine to wound bed. - In clinic only. Cleanser Cleanse Wound: - Normal Saline in Clinic. May use distilled water at home. May Shower. - Please avoid getting tap water in wound or on dressing. Dressings Cover and secure with: - bordered foam. Change Dressing: - Every other day. Additional Orders: Compression/Edema Control Single Layer Compression Hose - Tetragrip E. On in the morning, off at night. Follow-Up Appointments Other information: If you develop fever, chills, increased pain, drainage, redness or swelling please call our office. If after hours, respond to the ER. Should you experience any significant changes in your wound(s) or have any questions regarding your home care instructions please contact the wound center @ [phone]. If after hours, contact your primary care physician or go to the hospital emergency room. Discharge from Outpatient Services. - Wound healed Scribing Attestation I attest, as the nurse, that I scribed these orders for the physician. I've reviewed the clinician's documentation and agree with the evaluation and plan as written. Also, the patient will complete her course of antibiotics and we'll defer additional therapy. If signs of ulcer recurrence, complications regarding the Moh's site, or infection returns however we're happy to see her again in clinic. Electronic Signature(s) Signed By: Date: Ryan Genao MD 04/04/2018 09:38:18 Entered By: Ryan Genao on 04/04/2018 09:20:10
== END ==
PROVIDERS: PCP Family Medicine; Visit Provider Internal Medicine
DX: Z48.817 Encounter for surgical aftercare following surgery on the skin and subcutaneous tissue (principal)
CPT/HCPCS: 99213

== ENCOUNTER → 2018-04-17 14:15 | Outpatient (CLI) | payer MEDICARE, OTHER, SELFPAY ==
--- NOTE | 2018-04-17 | OV.WND_ITS ---
Progress Note Details Patient Name: Lizeth Oconnell Patient Number: [id number] PatientPatientDate: 04/17/2018 Clinician: Brenda Whiteside Clinician Cosigner: Bernadette Bhat Physician / Networking Administrator: Ryan Genao SUBJECTIVE Chief Complaint This information was obtained from the patient Non-healing wound to left lower leg Allergies NKDA HPI This information was obtained from the patient 04/17/18. Seen by Dr. Genao. The patient does not report pain associated with the left lower leg non-pressure ulcer since her last visit and she's here because a nurse she saw on Sunday felt the recently healed left lower leg trauma wound may be infected. 04/03/18. Seen by Dr. Genao. The patient does not report pain associated with the left lower leg non-pressure ulcer since her last visit. She'll complete her course of antibiotics today that's treating the Pseudomonas and Klebsiella positive wound culture taken last week and she does not report adverse side effects, fevers, or feeling unwell. She's also asked is I'd consider removing sutures from a right lower leg surgical wound where she'd had a Moh's procedure performed 10 days ago in [place]. She does not report pain or drainage associated with this wound. 03/26/18. Seen by Dr. Genao. The patient reports hitting her left lower leg on her car door yesterday in an area adjacent to the chronic left lower leg non-pressure ulcer. She reports some pain at the site and increased drainage but does not report any new issues regarding the chronic ulcer. 03/11/18. Seen by Dr. Genao. The patient does not report pain associated with the left lower leg non-pressure ulcer since her last visit. 03/04/18. Seen by Dr. Genao. The patient does not report pain associated with the left lower leg non-pressure ulcer since completing her recent course of levofloxacin. 02/20/18. Seen by Dr. Genao. The patient completed her course of levofloxacin today that's treating the recent pseudomonas positive wound culture taken from the chronic left lower leg non-pressure ulcer. She does not report increased drainage or pain from the site nor side effects from the antibiotics. 02/11/18. Seen by Dr. Genao. The patient reports some discomfort and continued drainage associated with the chronic left lower leg non-pressure ulcer since her last visit however she does not report fevers or feeling unwell in general. She also reports significant pruritus in the periucler area. 01/28/18. Seen by Carlitos Koehler PA-C. The patient reports no increase in drainage from her left lower leg ulcer since her last evaluation. She has questions today about when and under what circumstances she can return to active swimming. 01/18/18. Seen by Dr. Genao. The patient was started on doxycycline at her last visit for cellulitis associate with the left lower leg non-healing trauma wound and feels the leg redness and swelling have decreased. She still reports pain however and her wound culture grew Sarai parapsilosis. Of note, she hit the leg off of her stairs at home about 2 weeks ago. She does not report fevers, adverse side effects of the doxycycline, or feeling unwell otherwise. 01/14/18. Seen by Dr. Genao. The patient's new to our clinic and presents with a non-healing left lower leg trauma wound that occurred about 2 weeks ago when she fell over a step at her house. She reports pain, drainage, and periwound redness and was placed on antibiotics initially for 7 days and has now been off of them for one week. She does not report fevers or feeling unwell otherwise and does not have a history of diabetes or PAD. Past Medical History This information was obtained from the patient Patient has a medical history of: Rupture of Right Rotator cuff Hypertension Diffuse cystic mastopathy of Breast Complaints and Symptoms This information was obtained from the patient Patient complains of: General Notes: I have reviewed and concur with the Review of Systems and Past Family Social History documents completed by the clinician, I have reviewed and concur with the Wound Assessment document completed by the clinician Cardiovascular (Central/Peripheral): Lower extremity (leg) swelling Integumentary (Hair/Skin/Nails): Hemosiderin Staining, Open Sore Prior Wound History: Bleeding, Drainage, Erythema, Pain Patient denies complaints or symptoms related to: Cardiovascular (Central): Irregular heart beat Cardiovascular (Central/Peripheral): Intermittent Claudication, Lower extremity (leg) resting pain Constitutional Symptoms (General Health): Chills, Fever Ear/Nose/Mouth/Throat: Hearing Loss / Aid Hematologic/Lymphatic: Bleeding / Clotting Disorders, Bleeding Tendency Musculoskeletal: Assistive Devices, Muscle Weakness Neurological: Loss of Protective Sensation Psychiatric: Memory Loss Respiratory: Oxygen Use, Shortness of Breath OBJECTIVE Constitutional BP elevated; Afebrile; Alert and in no distress. Well developed. Alert. Clean appearing.. Height/Length: 61 in (154.94 cm), Weight: 121.7 lbs (55.32 kgs), BMI: 23, Temperature: 97.5 ?F (36.39 ?C), Pulse: 74 bpm, Respiratory Rate: 18 breaths/min, Blood Pressure: 140/80 mmHg, Pulse Oximetry: 100 %. Ears, Nose, Mouth, and Throat: No clinically significant hearing loss on informal examination. Respiratory: No respiratory distress. Even respirations and without use of accessory muscles.. Integumentary (Hair, Skin) Mild erythema in the recently healed periwound area with hemosiderin staining noted over the anterior left lower leg. Refer to appropriate clinician wound documentation for this visit.. Neurological: Cranial nerves grossly intact with symmetric function normal by informal observation.. ASSESSMENT Active Problems ICD-10 (Encounter Diagnosis) L08.9 - Local infection of the skin and subcutaneous tissue, unspecified PLAN Additional Orders: Topical Treatments Antibiotic/Antimicrobial Ointment/Cream. - Hydrocortisone cream to left lower leg Follow-Up Appointments Other information: If you develop fever, chills, increased pain, drainage, redness or swelling please call our office. If after hours, respond to the ER. Should you experience any significant changes in your wound(s) or have any questions regarding your home care instructions please contact the wound center @ [phone]. If after hours, contact your primary care physician or go to the hospital emergency room. Discharge from Outpatient Services. Scribing Attestation I attest, as the nurse, that I scribed these orders for the physician. I've reviewed the clinician's documentation and agree with the evaluation and plan as written. Also, the patient recently had a few episodes of cellulitis in the left lower leg however there's no appreciable open wound today and only mild erythema over the previously healed wound site which may represent a very mild infection. I'm not recommending antibiotics at this time however if the cellulitis appears to be recurring she's to see her primary care provider at that time. Electronic Signature(s) Signed By: Date: Ryan Genao MD 04/18/2018 06:31:52 Entered By: Ryan Genao on 04/18/2018 06:04:21 Addendum at 05/14/2018 08:14:04 [facility] updated by nurse after note signed. Addendum Signed By: Ryan Genao on 05/14/2018 08:14:04
== END ==
PROVIDERS: PCP Family Medicine; Visit Provider Internal Medicine
DX: L08.9 Local infection of the skin and subcutaneous tissue, unspecified (principal)
CPT/HCPCS: 99212

== ENCOUNTER → 2018-10-18 13:46 | Outpatient (REF) | payer MEDICARE, OTHER, SELFPAY | LOC: LAB 13:46 | PROVIDERS: PCP Family Medicine; Visit Provider Dermatology MOHS-Micrographic Surgery | DX: T81.40XA Infection following a procedure, unspecified, initial encounter (principal); Z48.02 Encounter for removal of sutures | CPT/HCPCS: 87070; 87075; 87077; 87147; 87186; 87205 ==

== ENCOUNTER → 2018-11-07 14:07 | Outpatient (CLI) | payer MEDICARE, OTHER, SELFPAY | PROVIDERS: PCP Family Medicine; Visit Provider Family Medicine | DX: S81.802A Unspecified open wound, left lower leg, initial encounter (principal); I87.312 Chronic venous hypertension (idiopathic) with ulcer of left lower extremity | CPT/HCPCS: 11042; 99203 ==

== ENCOUNTER → 2018-11-07 16:29 | Outpatient (REF) | payer MEDICARE, OTHER, SELFPAY | LOC: LAB 16:29 | PROVIDERS: PCP Family Medicine; Visit Provider Family Medicine | DX: L08.89 Other specified local infections of the skin and subcutaneous tissue (principal) | CPT/HCPCS: 87070; 87075; 87077; 87147; 87186; 87205 ==